=== PATIENT | female | born 1985 | race Caucasian/White ===

== ENCOUNTER 2017-11-25 11:39 | Day surgery (SDC) | payer BC ==
[~2017-11-25 11:39] MED LIST: LACTATED RINGER'S 500 ML IV; LIDOCAINE 2% (SDV) 5 ML INJ; PROPOFOL 200 MG INJ
[2017-11-25] MEDS ORDERED: DEXAMETHASONE 4 MG/ML 1 ML INJ (13:25)
[2017-11-25] MEDS ORDERED: ONDANSETRON 4 MG INJ (13:26)
[2017-11-25] MEDS ORDERED: KETOROLAC 30 MG INJ (13:27)
[2017-11-25 13:37] LABS: ADD MAN DIFF? NO
[2017-11-25 13:40] LABS: WHITE BLOOD COUNT 9.7 10^3/ul (4.8-10.8)
[2017-11-25 13:40] LABS: BASOPHILS % 0.4 % (0.0-2.0); EOSINOPHILS # 0.2 10^3/ul (0.0-0.5); EOSINOPHILS % 1.6 % (0.0-7.0); HEMATOCRIT 37.8 % (37.0-47.0); HEMOGLOBIN 13.3 g/dl (12.0-16.0); LYMPHOCYTES # 2.6 10^3/ul (0.8-2.9); LYMPHOCYTES % 26.5 % (15.0-51.0); MEAN CORPUSCULAR HGB CONC 35.2 g/dl (32.0-37.0); MEAN CORPUSCULAR VOLUME 88.1 fl (82.0-101.0); MEAN PLATELET VOLUME 10.1 fl (7.4-10.4); MONOCYTE # 0.8 10^3/ul (0.3-0.9); MONOCYTES % 7.9 % (0.0-11.0); NEUTROPHIL # 6.1 10^3/ul (1.6-7.5); NEUTROPHILS % 63.3 % (39.0-77.0); PLATELET COUNT 245 10^3/UL (140-415); RED BLOOD COUNT 4.29 10^6/ul (4.20-5.40); RED CELL DISTRIBUTION WIDTH 12.9 % (11.5-14.5)
[2017-11-25] MEDS ORDERED: EPHEDrine SULFATE 50 MG/5 ML SYG IV (15:00)
[2017-11-25] MEDS ORDERED: MIDAZOLAM 1 MG/ML 2 ML INJ IV (15:00)
[2017-11-25] MEDS ORDERED: DIPHENHYDRAMINE 50 MG INJ IV (15:00)
[2017-11-25] MEDS ORDERED: KETOROLAC 30 MG INJ IV (15:00)
[2017-11-25] MEDS ORDERED: ALBUTEROL 0.083% (NEB) 2.5 MG/3 ML AMP HHN (15:00)
[2017-11-25] MEDS ORDERED: HYDROmorphONE (0.2 MG/ML) 10ML SYG IV ×2 (15:00)
[2017-11-25] MEDS ORDERED: OXYCODONE/ACETAMINOPHEN (5/325) TAB PO ×2 (15:00)
[2017-11-25] MEDS ORDERED: LABETALOL HCL 20MG INJ IV (15:00)
[2017-11-25] MEDS ORDERED: FENTAnyl 50 MCG/ML VIAL IV ×3 (15:00)
[2017-11-25] MEDS ORDERED: hydrALAzine 20 MG INJ IV (15:00)
[2017-11-25] MEDS ORDERED: MEPERIDINE 25 MG INJ IV (15:00)
[2017-11-25] MEDS ORDERED: METOCLOPRAMIDE 10 MG INJ IV (15:00)
[2017-11-25] MEDS ORDERED: ONDANSETRON 4 MG INJ IV (15:00)
== END 2017-11-25 16:45 | disposition home or self-care (01) ==
LOC: SDS 11:39
DX: O02.1 Missed abortion (principal); F17.210 Nicotine dependence, cigarettes, uncomplicated
CPT/HCPCS: 58120; 83890; 85025; 85613; 86038; 86147